=== PATIENT | female | born 1955 | race Caucasian/White ===

== ENCOUNTER → 2018-04-23 | Outpatient (CLI) | payer MEDICARE ==
--- NOTE | 2018-05-03 14:09 | KCIC ---
Bilateral digital screening mammograms: Reason for examination: Routine screening. Comparison is made to previous study dated 09/23/2013. Interpretation is made with the benefit of CAD. The skin and nipples show no abnormalities. No abnormal lymph nodes are seen. The breast parenchyma is predominantly fatty. (Breast density: Category A.) There are no dominant masses, suspicious calcifications or architectural distortions. A few scattered benign-appearing calcifications are seen. Impression: No evidence of malignancy. Recommend routine screening. BI-RADS Category 2: Benign. "Our facility is accredited by the [employer] Mammography Program." This patient's information has been entered into a reminder system for the patient to be notified with the results of her examination and a target date for the next mammogram. Electronically signed by: Lora Cruz MD (05/03/2018 2:04 PM) [id number]
== END | disposition home or self-care (01) ==
LOC: KCIC MAMMO 14:26
PROVIDERS: ATTEND Family Medicine
DX: Z12.31 Encounter for screening mammogram for malignant neoplasm of breast (principal)
CPT/HCPCS: 77067

== ENCOUNTER → 2020-06-13 | Outpatient (CLI) | payer MEDICARE ==
--- NOTE | 2020-06-13 16:54 | RAD ---
PROCEDURE: US RENAL BILAT STUDY DATE: 06/13/2020 CLINICAL INDICATION / HISTORY: Reason: renal insufficiency / Spl. Instructions: / History: . TECHNIQUE: Real time ultrasound of the retroperitoneum focused on the kidneys and urinary bladder was performed. COMPARISON: None FINDINGS: Exam slightly limited by patient body habitus Ultrasound evaluation demonstrates the kidneys are normal in size and shape with with appropriate ech ogenicity and cortical thickness. There is no mass, hydronephrosis, or demonstrable stone formation. The right kidney measures 9.3 x 4.9 x 5.5 cm and the left kidney measures 10.7 x 5.0 x 5.2 cm. No abnormal fluid collections are demonstrated. The urinary bladder appears normal. Post void images were not acquired.. IMPRESSION: Unremarkable retroperitoneal ultrasound examination, showing no evidence of hydronephrosi s. Electronically signed by: Eve Valderrama MD (06/13/2020 4:51 PM) [id number]
== END ==
LOC: US 13:26
PROVIDERS: ATTEND Family Medicine
DX: N28.9 Disorder of kidney and ureter, unspecified (principal)
CPT/HCPCS: 76770

== ENCOUNTER → 2020-06-21 | Outpatient (CLI) | payer MEDICARE ==
--- NOTE | 2020-06-21 17:35 | CARD ---
MR#: [id number] Date of Study: 06/21/2020 Ordering Physician: SOLO HERNANDEZ, Referring Physician: SOLO HERNANDEZ, Tech: Rosa Spear KATHLEEN APPROVED REPORT EXAM: Two-dimensional and M-mode echocardiogram with Doppler and color Doppler. Other Information Quality : Fair INDICATION Murmur Morbid Obesity 2D DIMENSIONS RVDd3.0 (2.9-3.5cm)Left Atrium(2D)4.4 (1.6-4.0cm) IVSd1.2 (0.7-1.1cm)Aortic Root(2D)3.3 (2.0-3.7cm) LVDd5.6 (3.9-5.9cm)LVOT Diameter2.0 (1.8-2.4cm) PWd1.2 (0.7-1.1cm)LVDs2.9 (2.5-4.0cm) FS (%) 30.0 %SV122.8 ml LVEF(%)60.0 (>50%) Aortic Valve AoV Peak Juan Daniel.183.3cm/sAoV VTI33.2cm AO Peak GR.13.4mmHgLVOT Peak Juan Daniel.175.4cm/s LVOT VTI 34.66cmAO Mean GR.7mmHg ANDREW (VMAX)2.61bm1GRU (VTI)3.26cm2 Mitral Valve MV E Tiohwhry54.5cm/sMV DECEL [id number] MV A Vbjzisyd24.2cm/sMV FPB50jt E/A Ratio1.3MVA (PHT)3.43cm2 TDI E/Lateral E'8.2E/Medial E'12.9 Tricuspid Valve TR P. Yylzyfgz439lt/sRAP [id number] TR Peak Gr.36neBdAGTW16vnRy Pulmonary Vein S1 Ngnczers24.2cm/sD2 Hcvkmhsm63.5cm/s LEFT VENTRICLE The left ventricle is normal size. There is mild concentric left ventricular hypertrophy. The left ve ntricular systolic function is normal and the ejection fraction is within normal range. The Ejection Fraction is 55-60%. There is normal LV segmental wall motion. Transmitral Doppler flow pattern is Gra de I-abnormal relaxation pattern. RIGHT VENTRICLE The right ventricle is normal size. The right ventricular systolic function is normal. ATRIA The left atrium is mildly dilated. The right atrium size is normal. The interatrial septum is intact with no evidence for an atrial septal defect or patent foramen ovale as noted on 2-D or Doppler imagi ng. AORTIC VALVE The aortic valve is calcified but opens well. Doppler and Color Flow revealed no significant aortic r egurgitation. There is no significant aortic valvular stenosis. MITRAL VALVE The mitral valve is calcified but opens well. Mitral annular calcification is mild. There is no evide nce of mitral valve prolapse. There is no mitral valve stenosis. Doppler and Color-flow revealed trac e mitral regurgitation. TRICUSPID VALVE The tricuspid valve is normal in structure and function. Doppler and Color Flow revealed trace to mil d tricuspid regurgitation. The PA pressure was estimated at 34 mmHg. There is no tricuspid valve sten osis. PULMONIC VALVE The pulmonic valve is not well visualized. Doppler and Color Flow revealed no pulmonic valvular regur gitation. There is no pulmonic valvular stenosis. GREAT VESSELS The aortic root is normal in size. The ascending aorta is not well seen. The IVC is normal in size an d collapses >50% with inspiration. PERICARDIAL EFFUSION There is no evidence of significant pericardial effusion. Critical Notification Critical Value: No <Conclusion> The left ventricle is normal size. The left ventricular systolic function is normal and the ejection fraction is within normal range. The Ejection Fraction is 55-60%. There is mild concentric left ventricular hypertrophy. Doppler and Color Flow revealed no significant aortic regurgitation. There is no significant aortic valvular stenosis. Doppler and Color-flow revealed trace mitral regurgitation. Doppler and Color Flow revealed trace to mild tricuspid regurgitation. The PA pressure was estimated at 34 mmHg. Signed by : Beka Powell MD Electronically Approved : 06/21/2020 17:35:17
== END ==
LOC: ECHO 09:55
PROVIDERS: ATTEND Family Medicine
DX: I08.3 Combined rheumatic disorders of mitral, aortic and tricuspid valves (principal)
CPT/HCPCS: 93306